=== PATIENT | female | born 1990 | race Caucasian/White ===

== ENCOUNTER 2021-11-10 12:24 | Emergency (ER) | payer BC ==
[~2021-11-10] VITALS: Ht 172.7 cm; Wt 72.6 kg
== END 2021-11-10 14:41 | disposition home or self-care (01) ==
LOC: ER 12:24
DX: S71.111A Laceration without foreign body, right thigh, initial encounter (principal); W18.39XA Other fall on same level, initial encounter; Y92.89 Other specified places as the place of occurrence of the external cause; Y99.9 Unspecified external cause status; Z88.0 Allergy status to penicillin